=== PATIENT | female | born 1975 | race Caucasian/White ===

== ENCOUNTER 2018-03-10 15:50 | Emergency (ER) | payer SELFPAY ==
[~2018-03-10] VITALS: Ht 160 cm; Wt 102.1 kg
[2018-03-10 15:50] VITALS: BP 119/74
--- NOTE | 2018-03-10 16:10 | PHYS DOC ---
Adult General Chief Complaint Chief Complaint: RAPID HEART RATE [facility] HPI Patient is a 42 year old female who presents with SVT. Patient had sudden onset of rapid heart rate and a pounding sensation in her chest about 2:30 today. The patient was at work when symptoms started. 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 EMS was called. EMS reported the patient had SVT with a rate over 200. She was given 6 mg of adenosine and route and did convert to a sinus rhythm. The patient felt immediately better after the conversion. She does not have a prior history of SVT. She has no other history of heart problems. She has been at baseline health otherwise with no recent illness. Review of Systems Review of Systems Constitutional: Denies fever or chills Eyes: Denies change in visual acuity HENT: Denies nasal congestion or sore throat Respiratory: Denies cough or shortness of breath Cardiovascular: No additional information not addressed in HPI GI: Denies abdominal pain, nausea : Denies dysuria or hematuria Musculoskeletal: Denies back pain Integument: Denies rash or skin lesions Neurologic: Denies headache, focal weakness Endocrine: Denies polyuria All other systems were reviewed and found to be within normal limits, except as documented in this note. Current Medications Current Medications Current Medications Medications (Trade) Dose Ordered Sig/Dustin Start Time Stop Time Status Last Admin Dose Admin Magnesium Sulfate 50 ml @ 25 mls/hr 1X ONCE 03/10/18 17:00 03/10/18 18:59 03/10/18 17:07 25 MLS/HR Sodium Chloride 1,000 ml @ 1,000 mls/hr 1X ONCE 03/10/18 16:15 03/10/18 17:14 DC 03/10/18 16:15 1,000 MLS/HR Allergies Allergies Allergies Coded Allergies Type Severity Reaction Last Updated Verified Sulfa (Sulfonamide Antibiotics) Allergy Unknown 03/10/18 Yes Physical Exam Physical Exam Constitutional: Well developed, well nourished, no acute distress, non-toxic appearance HENT: Normocephalic, atraumatic, bilateral external ears normal, oropharynx moist Eyes: PERRLA, EOMI Neck: Normal range of motion, no tenderness Cardiovascular:Heart rate regular rhythm, no murmur Lungs & Thorax: Bilateral breath sounds clear to auscultation Abdomen: Bowel sounds normal, soft, no tenderness Skin: Warm, dry, no erythema Extremities: No edema Neurologic: Alert and oriented X 3 Psychologic: Affect normal Current Patient Data Vital Signs Vital Signs Date Time Temp Pulse Resp B/P (MAP) Pulse Ox O2 Delivery O2 Flow Rate FiO2 03/10/18 15:50 97.8 105 18 119/74 (89) 95 Room Air 97.8 Lab Values Laboratory Tests Test 03/10/18 16:00 03/10/18 16:05 Urine Test Negative (NEG) White Blood Count 6.5 x10^3/uL (4.0-11.0) Red Blood Count 4.36 x10^6/uL (3.50-5.40) Hemoglobin 12.6 g/dL (12.0-15.5) Hematocrit 35.5 % (36.0-47.0) L Mean Corpuscular Volume 81 fL (79-100) Mean Corpuscular Hemoglobin 29 pg (25-35) Mean Corpuscular Hemoglobin Concent 36 g/dL (31-37) Red Cell Distribution Width 14.1 % (11.5-14.5) Platelet Count 263 x10^3/uL (140-400) Neutrophils (%) (Auto) 53 % (31-73) Lymphocytes (%) (Auto) 37 % (24-48) Monocytes (%) (Auto) 7 % (0-9) Eosinophils (%) (Auto) 1 % (0-3) Basophils (%) (Auto) 1 % (0-3) Neutrophils # (Auto) 3.5 x10^3uL (1.8-7.7) Lymphocytes # (Auto) 2.4 x10^3/uL (1.0-4.8) Monocytes # (Auto) 0.4 x10^3/uL (0.0-1.1) Eosinophils # (Auto) 0.1 x10^3/uL (0.0-0.7) Basophils # (Auto) 0.1 x10^3/uL (0.0-0.2) Urine Collection Type Unknown Urine Color Yellow Urine Clarity Clear Urine pH 6.0 Urine Specific [place] 1.015 Urine Protein Negative mg/dL (NEG-TRACE) Urine Glucose (UA) Negative mg/dL (NEG) Urine Ketones (Stick) Negative mg/dL (NEG) Urine Blood Negative (NEG) Urine Nitrite Negative (NEG) Urine Bilirubin Negative (NEG) Urine Urobilinogen Dipstick 0.2 mg/dL (0.2 mg/dL) Urine Leukocyte Esterase Negative (NEG) Urine RBC 0 /HPF (0-2) Urine WBC 0 /HPF (0-4) Urine Squamous Epithelial Cells Mod /LPF Urine Bacteria Few /HPF (0-FEW) Sodium Level 139 mmol/L (136-145) Potassium Level 4.0 mmol/L (3.5-5.1) Chloride Level 102 mmol/L (98-107) Carbon Dioxide Level 29 mmol/L (21-32) Anion Gap 8 (6-14) Blood Urea Nitrogen 14 mg/dL (7-20) Creatinine 0.7 mg/dL (0.6-1.0) Estimated GFR (Cockcroft-Gault) 91.3 Glucose Level 146 mg/dL (70-99) H Calcium Level 8.9 mg/dL (8.5-10.1) Magnesium Level 1.6 mg/dL (1.8-2.4) L Troponin I Quantitative < 0.017 ng/mL (0.000-0.055) Thyroid Stimulating Hormone (TSH) 1.769 uIU/mL (0.358-3.74) Laboratory Tests 03/10/18 16:05 Laboratory Tests 03/10/18 16:05 EKG EKG No STEMI Interpretation Time: 16:00 Radiology/Procedures Radiology/Procedures [] Course & Med Decision Making Course & Med Decision Making Pertinent Labs and Imaging studies reviewed. (See chart for details) Patient is seen immediately on arrival to the emergency room. She is in sinus rhythm with a rate of 104. IV fluids ordered. Basic labs including magnesium, electrolytes, troponin and TSH are ordered. Patient currently having no distress and no pain. 18:00: Patient was evaluated in the emergency department after having an episode of supraventricular tachycardia. In the emergency department, her workup was negative other than she was noted to have hypomagnesemia. She was given 2 g of magnesium in the emergency department. Otherwise, the patient's workup was normal. Her EKG in the ER revealed sinus rhythm. She had mild tachycardia initially on arrival but this improved after IV fluids were given. Patient was discharged home. She was placed on magnesium over the next week. She was advised to ensure that she resumes a normal diet. She was provided the follow-up information of Dr. Muñoz for routine f/u and advised to come back to the emergency department if her symptoms should recur. All of the patient's questions were answered prior to discharge home and she was agreeable to the plan of care. Dragon Disclaimer Dragon Disclaimer This electronic medical record was generated, in whole or in part, using a voice recognition dictation system. Departure Departure Disposition: 01 HOME, SELF-CARE Condition: GOOD Scripts Magnesium Oxide (MAGNESIUM OXIDE) 400 Mg Tablet 1 TAB PO BID, #20 TAB 0 Refills Prov: EUGENE GRIFFITHS DO 03/10/18 EUGENE GRIFFITHS DO Mar 10, 2018 16:09
[2018-03-10] MEDS ORDERED: IV NORMAL SALINE 1000ML BAG 1,000 ML IV ONE (16:15)
[2018-03-10 16:19] LABS: BILIRUBIN,URINE NEGATIVE (NEG); CLARITY,URINE CLEAR; COLOR,URINE YELLOW; NITRITE,URINE NEGATIVE (NEG); PROTEIN,URINE NEGATIVE (NEG-TRACE); UROBILINOGEN,URINE 0.2 mg/dL (0.2 mg/dL)
[2018-03-10 16:25] LABS: BASO # 0.1 x10^3/uL (0.0-0.2); BASO % 1 % (0-3); EOS # 0.1 x10^3/uL (0.0-0.7); EOS % 1 % (0-3); HEMATOCRIT 35.5 % (36.0-47.0); HEMOGLOBIN 12.6 g/dL (12.0-15.5); LYMPH # 2.4 x10^3/uL (1.0-4.8); LYMPH % 37 % (24-48); MEAN CORPUSCULAR HEMOGLOBIN 29 pg (25-35); MEAN CORPUSCULAR HGB CONC 36 g/dL (31-37); MEAN CORPUSCULAR VOLUME 81 fL (79-100); MONO # 0.4 x10^3/uL (0.0-1.1); MONO % 7 % (0-9); NEUT # 3.5 x10^3uL (1.8-7.7); NEUT % 53 % (31-73); PLATELET COUNT 263 x10^3/uL (140-400); RED BLOOD COUNT 4.36 x10^6/uL (3.50-5.40); RED CELL DISTRIBUTION WIDTH 14.1 % (11.5-14.5); WHITE BLOOD COUNT 6.5 x10^3/uL (4.0-11.0)
[2018-03-10 16:27] LABS: BACTERIA,URINE FEW /HPF (0-FEW); CALCIUM 8.9 mg/dL (8.5-10.1); CREATININE 0.7 mg/dL (0.6-1.0); GFR 91.3; RBC,URINE 0 /HPF (0-2); SQUAMOUS EPITHELIAL CELL,UR MOD /LPF
[2018-03-10 16:28] LABS: WBC,URINE 0 /HPF (0-4)
--- NOTE | 2018-03-10 16:28 | EKG ---
[facility] [address] [place] [address] Test Date: 2018-03-10 Test Time: 15:59:20 Pat Name: LOVE ESPINO Department: Room: Gender: F [employer] Supervisor: : 1975 Requested By: EUGENE GRIFFITHS Order Number: [id number] Reading MD: Measurements Intervals [place] Rate: 103 P: 60 [place]: 152 QRS: 8 QRSD: 76 T: 9 QT: 324 QTc: 426 Interpretive Statements SINUS TACHYCARDIA OTHERWISE NORMAL ECG RI6.01 No previous ECG available for comparison
[2018-03-10 16:42] LABS: U PREG PATIENT NEGATIVE (NEG)
[2018-03-10] MEDS ORDERED: MAGNESIUM SULFATE 2GM 50 ML IV ONE (17:00)
[2018-03-10] MEDS ORDERED: MAGN400T3 PO (17:52)
== END 2018-03-10 18:40 | disposition home or self-care (01) ==
LOC: ER 15:50
DX: I47.1 Supraventricular tachycardia (principal); Z88.2 Allergy status to sulfonamides
CPT/HCPCS: 36415; 80048; 81001; 81025; 83735; 84443; 84484; 85025; 93005; 96365; 99284; J3475; J7030